=== PATIENT | male | born 1965 | race Caucasian/White ===

== ENCOUNTER 2020-08-06 11:11 | Outpatient (CLI) | payer SELFPAY ==
--- NOTE | 2020-08-06 | ECHO_ITS ---
Patient Info Name: Deonte Palencia Age: 55 years : 1965 Gender: Male Ht: 74 in Wt: 240 lbs BSA: 2.41 m2 HR: 78 bpm BP: 167 / 99 mmHg Heart Rhythm: Sinus Rhythm Technical Quality: Good Exam Date: 08/06/2020 1:55 PM Exam Location: [facility] Patient Status: Outpatient Admit Date: 08/06/2020 Staff Ordering Physician: Austin, Mando ORTIZ Seaman Officer: HOLDEN Mendoza Attending Provider: Austin, Mando ORTIZ Exam Type: CA echo doppler color flow Study Info Indications - HYPERTENSIVE EMERGENCY Complete two-dimensional, color flow and Doppler transthoracic echocardiogram is performed. Summary 1. Complete two-dimensional, color flow and Doppler transthoracic echocardiogram is performed. 2. There is mild concentric increased left ventricular wall thickness. 3. Left ventricular systolic function is normal, estimated at 60-65%. 4. Left atrial chamber dimension is mildly enlarged. 5. No valvular abnormalities. Left Ventricle Left ventricular chamber dimension is normal. Left ventricular systolic function is normal, estimated at 60-65%. There is mild concentric increased left ventricular wall thickness. The left ventricular diastolic function is grade I diastolic dysfunction. Right Ventricle Right ventricular chamber dimension is normal. Left Atria Left atrial chamber dimension is mildly enlarged. Right Atria Right atrial chamber dimension is normal. Aortic Valve The aortic valve is normal. Pulmonic Valve The pulmonic valve is normal. Mitral Valve The mitral valve has normal leaflets. Tricuspid Valve The tricuspid valve leaflets are normal. Pericardium/Pleural The pericardium appears normal. Aorta The aortic root size at the sinus of Valsalva is normal. Left Ventricular Outflow Tract Name Value Normal LVOT 2D LVOT Diameter 2.2 cm LVOT Doppler LVOT Peak Gradient 6 mmHg LVOT Mean Gradient 4 mmHg LVOT VTI 30 cm LVOT VTI/AV VTI Ratio 0.8 LVOT Stroke Volume 112 ml LVOT CO 20.6 l/min LVOT CI 8.5 l/min/m2 Pulmonic Valve Name Value Normal PV Doppler PV Peak Gradient 5 mmHg Mitral Valve Name Value Normal MV Doppler MV Decel Rooks 307 cm/s2 MV PHT 75 ms MV Area (PHT) 2.9 cm2 4.0-5.0 MV Diastolic Function
--- NOTE | ~2020-08-06 | CT_ITS ---
EXAMINATION: CTA chest abdomen DATE: 08/06/2020 13:37 INDICATION: Hypertensive urgency TECHNIQUE: Computed tomographic angiography (CTA) of the chest and abdomen was performed with 100 cc of Omnipaque-350 intravenous contrast. Additional 3D reconstructions utilizing rotating maximum inten sity projection (MIP) were performed. Automated exposure control and iterative reconstruction Elliptic ue were employed. The dose-length product was 1180.89 mGy-cm. COMPARISON: None FINDINGS: CHEST: Biapical paraseptal emphysema. Minimal dependent atelectasis in the bilateral lower lobes. No pneumon ia, pulmonary edema or pleural effusion. Heart size is normal. No pericardial effusion. Thoracic aort a is normal in caliber with no dissection. Likely reactive mild mediastinal lymphadenopathy comminute d largest a right paratracheal lymph node measuring 1.2 cm maximal short axis diameter with central f atty hilum. Moderate lower cervical and mild thoracic spondylosis. ABDOMEN: Diffuse hepatic steatosis. Gallbladder, spleen, pancreas, bilateral adrenal glands and right kidney a re normal. 11 mm left renal cyst. Moderate diverticulosis along the descending and sigmoid colon. Sma ll bowel and appendix are normal. Visualized portion of the bladder is normal. No free intraperitonea l gas or fluid. No pathologically enlarged abdominal lymphadenopathy. Abdominal aorta is normal in ca liber with no dissection. Minimal atherosclerotic calcific lesion at the infrarenal aorta and in the bilateral iliac arteries. Schmorl's node along the superior endplate of L2. IMPRESSION: 1. Normal caliber thoracic and abdominal aorta with no dissection. 2. Diffuse hepatic steatosis. 3. Moderate diverticulosis. 4. Mild likely reactive mediastinal lymphadenopathy. Reviewed, dictated and finalized at location A.
[2020-08-06 13:11] LABS: Estimated Glomerular Filt Rate > 60
== END 2020-08-06 11:12 | disposition home or self-care (01) ==
PROVIDERS: Visit Provider Internal Medicine
DX: I16.0 Hypertensive urgency (principal)
CPT/HCPCS: 71275; 74175; 93306; Q9967